=== PATIENT | female | born 1995 | race Caucasian/White ===

== ENCOUNTER 2020-03-11 10:02 | Emergency (ER) | payer MEDICAID ==
[~2020-03-11] VITALS: Ht 154.9 cm; Wt 59.0 kg
[2020-03-11] MEDS ORDERED: IBUPROFEN 600MG TABLET PO ONE (10:30)
[2020-03-11] MEDS ORDERED: BACITRACIN/POLYMYXIN B SULFATE OINT 15GM TOP ONE (11:00)
[2020-03-11 11:14] VITALS: BP 120/81
== END 2020-03-11 13:00 | disposition home or self-care (01) ==
LOC: ER 10:02
DX: S00.81XA Abrasion of other part of head, initial encounter (principal); S50.312A Abrasion of left elbow, initial encounter; S62.604A Fracture of unspecified phalanx of right ring finger, initial encounter for closed fracture; S00.83XA Contusion of other part of head, initial encounter; Z90.49 Acquired absence of other specified parts of digestive tract; Y04.0XXA Assault by unarmed brawl or fight, initial encounter; Y93.89 Activity, other specified; Y92.89 Other specified places as the place of occurrence of the external cause
CPT/HCPCS: 29130; 73140; 99284